=== PATIENT | male | born 1955 | race Caucasian/White ===

== ENCOUNTER 2018-01-29 13:28 | Emergency (ER) | payer OTHER ==
[~2018-01-29] VITALS: Ht 180.3 cm; Wt 134.3 kg
[2018-01-29 13:28] VITALS: BP_SYST 153
[2018-01-29] MEDS ORDERED: LIDOCAINE 1%, 20 ML MDV 20 ML ONE (13:42)
[2018-01-29] MEDS ORDERED: BACITRACIN 1 GM OINT TP ONE (13:42)
[2018-01-29 14:45] VITALS: BP_SYST 145
== END 2018-01-29 14:45 | disposition home or self-care (01) ==
LOC: SED 13:28
DX: S01.81XA Laceration without foreign body of other part of head, initial encounter (principal); W22.8XXA Striking against or struck by other objects, initial encounter; Y93.89 Activity, other specified; Y92.89 Other specified places as the place of occurrence of the external cause; Y99.8 Other external cause status
CPT/HCPCS: 12011; 99283; J2001